=== PATIENT | male | born 1955 | race Caucasian/White ===

== ENCOUNTER 2019-04-18 19:11 | Observation (INO) | payer BC ==
[2019-04-18] MEDS ORDERED: MORPHINE SULFATE 5 MG/ML VIAL IVP ONE (19:29)
[2019-04-18] MEDS ORDERED: ONDANSETRON HCL IV 4 MG/2 ML VIAL IVP ONE (19:29)
[2019-04-18] MEDS ORDERED: 0.9 % SODIUM CHLORIDE 1000ML 1,000 ML IV SCH (19:30)
--- NOTE | 2019-04-18 19:35 | Emergency Department Record ---
History of Present Illness - General Chief Complaint: Numbness Stated Complaint: SHARP PAIN R GROIN/ LEG NUMB Time Seen by Provider: 04/18/19 19:23 Source: Patient Mode of Arrival: Ambulatory Limitations: No limitations - History of Present Illness Initial Comments: 63 yo male presents to ED for evaluation of right groin/right lower quadrant abdominal pain for the past 4 days, worsened this evening. Patient reports that his pain symptoms have been intermittent, reports constipation without nausea, vomiting, fevers, or chills. Patient denies urinary symptoms. Patient deneis history of kidney stones, reports history of PA with stent x 2 and IDDM. Onset/Timin -: Days(s) Location: Right leg History of same: No Place: Home Associated Symptoms: Denies other symptoms Treatments Prior to Arrival: None - Leslie Coma Scale Eye Response: (4) Open spontaneously Motor Response: (6) Obeys commands Verbal Response: (5) Oriented [place] Total: 15 - Related Data Home Medications: Home Medications Medication Instructions Recorded Confirmed Last Taken Insulin Glargine/Lixisenatide 34 units SQ DAILY 04/18/19 04/18/19 04/17/19 [Soliqua 100 Unit-33 Mcg/ml Pen] Allergies/Adverse Reactions: Allergies Allergy/AdvReac Type Severity Reaction Status Date / Time No Known Drug Allergies Allergy Verified 12/07/13 11:41 Travel Screening - Travel/Exposure Within Last 30 Days Have you traveled within the last 30 days?: No - Travel/Exposure Within Last Year Have you traveled outside the [place] in the last year?: No - Additonal Travel Details Have you been exposed to anyone with a communicable illness?: No - Travel Symptoms Symptom Screening: None Review of Systems Constitutional: Denies: Chills, Fever, Malaise, Night sweats Eyes: Denies: Eye discharge, Eye pain ENT: Denies: Congestion, Ear pain, Epistaxis Respiratory: Denies: Cough, Dyspnea Cardiovascular: Denies: Chest pain, Dyspnea on exertion Endocrine: Denies: Fatigue, Heat or cold intolerance Gastrointestinal: Reports: Abdominal pain, Constipation. Denies: Nausea, Vomiting Genitourinary: Denies: Incontinence, Retention, Testicular pain, Testicular mass Musculoskeletal: Denies: Arthralgia, Back pain Skin: Denies: Bruising, Change in color Neurological: Denies: Abnormal gait, Confusion, Headache, Seizure Psychiatric: Denies: Anxiety Hematological/Lymphatic: Denies: Anemia, Blood Clots Past Medical History - SOCIAL HISTORY Smoking Status: Current every day smoker Alcohol Use: None Drug Use: None - RESPIRATORY Hx Respiratory Disorders: No - CARDIOVASCULAR Hx Cardio Disorders: Yes Hx Cardiac Cath: Yes Hx Chest Pain: Yes Hx CHF: Yes Hx Heart Attack: Yes Hx Hypertension: Yes - NEURO Hx Neuro Disorders: No - GI Hx GI Disorders: No - Hx Genitourinary Disorders: No - ENDOCRINE Hx Endocrine Disorders: Yes Hx Diabetes: Yes (type 2) - MUSCULOSKELETAL Hx Musculoskeletal Disorders: No - PSYCH Hx Psych Problems: Yes Hx Anxiety: Yes Hx Depression: Yes - HEMATOLOGY/ONCOLOGY Hx Hematology/Oncology Disorders: No Family Medical History Any Significant Family History?: Yes Hx Diabetes: Mother Physical Exam - General General Appearance: Alert, Oriented x3, Cooperative, Moderate distress (appears uncomfortable on examination) Limitations: No limitations - Head Head exam: Atraumatic, Normocephalic, Normal inspection Head exam detail: negative: Abrasion, Contusion, Johnson's sign, General tender ness, Hematoma, Laceration - Eye Eye exam: Normal appearance. negative: Conjunctival injection, Periorbital swelling, Periorbital tenderness, Scleral icterus - ENT Ear exam: negative: Auricular hematoma, Auricular trauma Nasal Exam: negative: Active bleeding, Discharge, Dried blood, Foreign body Mouth exam: negative: Drooling, Laceration, Muffled voice, Tongue elevation - Neck Neck exam: Normal inspection. negative: Meningismus, Tenderness - Respiratory Respiratory exam: Normal lung sounds bilaterally. negative: Respiratory distress, Rhonchi, Stridor, Wheezes - Cardiovascular Cardiovascular Exam: Regular rate, Normal rhythm, Normal heart sounds Peripheral Pulses: 3+: Dorsalis Pedis (R) (Normal DPP right foot) - GI/Abdominal GI/Abdominal exam: Soft, Tenderness (TTP right inguinal region, no mass palpated, no bruising, no evidence for hernia or injury on examination. No lymphadenopathy is present on examination.). negative: Rebound, Rigid - Rectal Rectal exam: Deferred - exam: Deferred - Extremities Extremities exam: Normal inspection. negative: Pedal edema, Tenderness - Back Back exam: Denies: CVA tenderness (R), CVA tenderness (L) - Neurological Neurological exam: Alert, Normal gait, Oriented X3 - Psychiatric Psychiatric exam: Normal affect, Normal mood - Skin Skin exam: Normal color. negative: Abrasion Type of lesion: negative: abrasion Course Vital Signs 04/18/19 19:20 Temperature 97.7 F Pulse Rate [ 87 Right] Respiratory 18 Rate Blood Pressure 148/94 [Left Arm] Pulse Ox 100 - Reevaluation(s) Reevaluation #1: 04/18/19 20:54 Laboratory studies were reviewed and appear grossly unremarkable for an acute process. Patient is back from CT imaging, reports little improvement with Morphine. Dilaudid 1.0 mg ordered for continued pain symptoms. Reevaluation #2: 04/18/19 21:05 CT Abdomen and Pelvis: No ureteral tract calculi are evident on examination Diverticulosis of the distal colon without diverticulitis Reevaluation #3: 04/18/19 21:17 Patient was reassessed, reports pain symptoms at still 3-4/10. Patient was re-evaluated, continues to have strong DPP on re-examination. No clinical evidence for vascular occlusion on examination. ? Nerve impingement on examination. Will admit for further evaluation and US in the AM. Reevaluation #4: 04/19/19 06:34 Case was discussed with Dr. Goldberg, will accept admission at this time. Medical Decision Making - Lab Data Result diagrams: 04/18/19 19:40 04/18/19 19:40 Disposition Disposition: Admit Clinical Impression: Right inguinal pain Disposition: Still a Patient at [facility] Decision to Admit: Admit from ER Decision to Admit Date: 04/18/19 Decision to Admit Time: 21:21 Condition: (2) Stable Time of Disposition: 21:21 Quality - Quality Measures Quality Measures: N/A - Blood Pressure Screening Does Patient Have Any of the Following: Active Dx of HTN Blood Pressure Classification: Pre-Hypertensive BP Reading Systolic Measurement: 130 Diastolic Measurement: 79 Screening for High Blood Pressure: Patient Exclusion, Hx of HTN [G9744]
[2019-04-18 19:43] LABS: BASO % 0.3 % (0-6); EOS % 4.3 % (0-6); GRAN % 63.6 % (47-80); HEMATOCRIT 44.6 % (42.0-52.0); HEMOGLOBIN 14.8 gm/dl (14.0-18.0); LYMPH % 20.4 % (16-45); MEAN CELL VOLUME 89.6 fl (81-97); MEAN CORPUSCULAR HEMOGLOBIN 29.7 pg (27-33); MEAN CORPUSCULAR HGB CONC 33.2 g/dl (32-36); MEAN PLATELET VOLUME 9.4 fl (7.4-10.4); MONO % 11.4 % (0-9); PLATELET COUNT 310 K/uL (130-400); RED BLOOD COUNT 4.98 M/uL (4.40-5.70); RED CELL DISTRIBUTION WIDTH 15.1 % (11.5-14.5); WHITE BLOOD COUNT W/O DIFF 11.6 K/uL (4.2-12.2)
[2019-04-18 19:55] LABS: BLOOD UREA NITROGEN 19 mg/dL (8-23); CREATININE 0.7 mg/dL (0.7-1.2); EST GLOMERULAR FILTRATION RATE > 60 mL/min
[2019-04-18 19:56] LABS: LIPASE 19 U/L (13-60); TOTAL PROTEIN 7.7 g/dL (6.6-8.7)
[2019-04-18 19:58] LABS: GLUCOSE,RANDOM 108 mg/dL (74-109)
[2019-04-18 20:01] LABS: ALBUMIN 3.9 g/dL (4.0-5.0); ALKALINE PHOSPHATASE 84 U/L (40-129); ALT/SGPT 10 U/L (<41); AST/SGOT 13 U/L (10.0-50.0)
[2019-04-18 20:19] LABS: URINE APPEARANCE CLEAR; URINE BILIRUBIN NEGATIVE (NEGATIVE); URINE BLOOD TRACE-I (NEGATIVE); URINE COLOR YELLOW; URINE KETONE NEGATIVE (NEGATIVE); URINE LEUKOCYTE ESTERASE NEGATIVE (NEGATIVE); URINE NITRITE NEGATIVE (NEGATIVE)
[2019-04-18 20:28] LABS: URINE RBC 0 - 2 (NONE SEEN); URINE WBC 0 - 2 (0-2/hpf)
[2019-04-18] MEDS ORDERED: HYDROMORPHONE HCL 2 MG/ML VIAL IVP ONE (20:55)
[2019-04-18] MEDS ORDERED: METHYLPREDNISOLONE PF 125MG/VIAL IVP ONE (21:22)
[2019-04-18] MEDS ORDERED: HYDROMORPHONE HCL 2 MG/ML VIAL IVP PRN (21:41)
[2019-04-18] MEDS ORDERED: 0.9 % SODIUM CHLORIDE 1000ML 1,000 ML IV ONE (21:41)
[2019-04-18] MEDS ORDERED: ONDANSETRON HCL IV 4 MG/2 ML VIAL IVP PRN (21:41)
[2019-04-18] MEDS ORDERED: METFORMIN ER HCL 500 MG TAB.ER.24H PO SCH (22:00)
[2019-04-19] MEDS ORDERED: NICOTINE 21 MG/24 HOUR PATCH TD PRN (06:33)
[2019-04-19 06:57] LABS: ABSOLUTE NEUTROPHIL COUNT 6.23; BASO % 0.3 % (0-6); EOS % 5.3 % (0-6); GRAN % 53.3 % (47-80); HEMATOCRIT 41.4 % (42.0-52.0); HEMOGLOBIN 13.6 gm/dl (14.0-18.0); LYMPH % 30.9 % (16-45); MEAN CELL VOLUME 90.6 fl (81-97); MEAN CORPUSCULAR HGB CONC 32.9 g/dl (32-36); MEAN PLATELET VOLUME 9.2 fl (7.4-10.4); MONO % 10.2 % (0-9); PLATELET COUNT 283 K/uL (130-400); RED BLOOD COUNT 4.57 M/uL (4.40-5.70); RED CELL DISTRIBUTION WIDTH 14.9 % (11.5-14.5); WHITE BLOOD COUNT W/O DIFF 11.7 K/uL (4.2-12.2)
[2019-04-19 07:00] LABS: MEAN CORPUSCULAR HEMOGLOBIN 29.7 pg (27-33)
[2019-04-19 07:14] LABS: BLOOD UREA NITROGEN 15 mg/dL (8-23); CREATININE 0.7 mg/dL (0.7-1.2); EST GLOMERULAR FILTRATION RATE > 60 mL/min; GLUCOSE,RANDOM 81 mg/dL (74-109)
--- NOTE | 2019-04-19 09:34 | Discharge Note ---
VTE H&P Assessment - Risk for VTE Risk for VTE: No Risk Level: Very Low Risk Assessment Date: 04/19/19 Risk Assessment Time: 09:58 VTE Orders Placed or Will Be Placed: No VTE Reason for No Prophylaxis: Not Indicated Discharge Medications - Discharge Medications Prescriptions: Hydrocodone/Acetaminophen [Orange 5-325 Tablet] 1 each PO Q6HR PRN #10 tablet PRN Reason: Pain - Severe (8-10) Sulfamethoxazole/Trimethoprim [Bactrim Ds Tablet] 1 each PO BID #20 tablet Home Medications: Ambulatory Orders Aspirin 325 mg PO DAILY 12/07/13 [Last Taken 12/07/13] Metoprolol Succinate [Toprol Xl] 50 mg PO DAILY 12/07/13 [Last Taken 04/17/19] Nitroglycerin 1 ea TD Q5MIN PRN 12/07/13 [Last Taken 12/07/13] Rosuvastatin Calcium [Crestor] 10 mg PO DAILY 12/07/13 [Last Taken 04/17/19] Insulin Glargine/Lixisenatide [Soliqua 100 Unit-33 Mcg/ml Pen] 34 units SQ DAILY 04/18/19 [Last Taken 04/17/19] Hydrocodone/Acetaminophen [Orange 5-325 Tablet] 1 each PO Q6HR PRN #10 tablet 04/19/19 [Last Taken Unknown] Metformin HCl 500 mg PO BID 04/19/19 [Last Taken Unknown] Sulfamethoxazole/Trimethoprim [Bactrim Ds Tablet] 1 each PO BID #20 tablet 04/19/19 [Last Taken Unknown] Discharge Note - Date Date of Discharge Note: 04/19/19 Condition: (2) Stable Additional Instructions: warm soaks to buttock use tylenol or motrin for moderate pain use norco for severe pain follow up with Dr Joshi in one week Referrals: EVELYNE JOSHI [Primary Care Provider] - Forms: Patient Portal Access
[2019-04-19] MEDS ORDERED: METOPROLOL SUCC 50 MG TABLET PO SCH (10:00)
[2019-04-19] MEDS ORDERED: PRASUGREL HCL 10 MG PO SCH (10:00)
[2019-04-19] MEDS ORDERED: Soliqua 100 Unit-33 Mcg/Ml Pen SC SCH (10:00)
[2019-04-19] MEDS ORDERED: ATORVASTATIN 20 MG TABLET PO SCH (10:00)
[2019-04-19] MEDS ORDERED: ASPIRIN 325 MG TABLET PO SCH (10:00)
--- NOTE | 2019-04-19 13:04 | CT SCAN REPORT ---
EXAM: CT OF THE ABDOMEN AND PELVIS WITHOUT CONTRAST HISTORY: RIGHT GROIN PAIN. TECHNIQUE: Without administration of intravenous contrast contiguous axial sections were obtained through the abdomen and pelvis. Coronal and sagittal reformats. Comparison: 05/11/16. FINDINGS: The subpleural nodule of the right middle lobe appears unchanged since the prior examination. Curvilinear opacities suggesting areas of lung scarring are subsegmental atelectasis. No free air evidence within the abdomen or pelvis. Noncontrast technique limits evaluation of the solid organs. The gallbladder is present. No pericholecystic fluid. Bilateral renal cysts continue. No renal, ureteral or bladder stone evident. No hydronephrosis. Perinephric fat stranding appears unchanged. The visualized portions of the solid organs otherwise grossly unremarkable as seen. There is atherosclerosis. No abdominal aortic aneurysm. Evaluation of the vasculature is otherwise limited. The GI tract is nondilated. The appendix is normal. There are a few scattered diverticula of the distal colon without clear surrounding inflammatory change. No mesenteric adenopathy. The abdominal wall appears grossly intact. There are degenerative changes of the spine, sacroiliac joints, and hips. IMPRESSION: 1. NO CT EVIDENCE FOR RENAL, URETERAL, OR BLADDER STONE. NO HYDRONEPHROSIS. 2. DISTAL COLON DIVERTICULOSIS WITHOUT EVIDENCE FOR DIVERTICULITIS AT THIS TIME. 3. NOT MENTIONED IN THE ABOVE REPORT IS MILD BILATERAL INGUINAL ADENOPATHY WHICH APPEARS GROSSLY UNCHANGED. 4. THE ER PHYSICIAN WAS NOTIFIED BY VOICE CLIP. JOB NUMBER: [id number] MTDD
--- NOTE | 2019-04-19 14:10 | History and Physical Report ---
CHIEF COMPLAINT: Right groin pain. HISTORY OF PRESENT ILLNESS: This 63-year-old male presented to the emergency department with right groin pain which started 3-4 days prior. The pain is on and off and become unbearable around 5:30 p.m. with numbness in the right hip, top of the right thigh. Denies recent illness or injury. the patient states that he had a BM yesterday which was painful. Denies urinary symptoms. He has a history of hidradenitis. He was evaluated in the emergency department by Dr. Henry who admitted him to the hospital for further evaluation. He was concerned it may be a circulation problem; however, the pulses in his legs are good. He was given some pain medication. He is feeling much better today. The pain is way improved. The patient reveals to me on my examination that he has had abscesses in the scrotum and the buttocks, especially on the right side. The right buttock is currently draining in 2 spots purulent material from hidradenitis. He takes prophylactic Bactrim to try keep them under control. He is using single-strength Bactrim b.i.d. There are no abscesses that need to be drained at this time. They are spontaneously draining. However, his lymph nodes are inflamed and that is what is causing his right groin pain. His numbness is gone at this time. PAST MEDICAL HISTORY: Coronary artery disease with stents x2 two to three years ago, hypertension, [place] in the past, anxiety and depression. He has diabetes mellitus type 2. PAST SURGICAL HISTORY: Bilateral knee surgery and stents in his heart. MEDICATIONS: On admission: 1. Crestor 10 mg daily. 2. Effient 10 mg daily. 3. Toprol-XL 50 mg daily. 4. Metformin 500 mg b.i.d. 5. Insulin combination product called Soliqua 100/33 daily. It is a combination of Lantus and lixisenatide, 34 units a day. 6. Aspirin 325 daily. 7. Nitro-Dur p.r.n. every 5 minutes apart if necessary for chest pain. ALLERGIES: No known allergies. FAMILY/PSYCHOSOCIAL HISTORY: Mother has diabetes. Smoker. He currently smokes about a pack a day. No alcohol or drug use. REVIEW OF SYSTEMS: HEENT: No upper respiratory infection symptoms, cough, cold, or congestion. Cardiovascular: No chest pain, palpitations, or arrhythmia. Respiratory: No shortness of breath or hemoptysis. He does smoke cigarettes. Gastrointestinal: No nausea, vomiting, diarrhea, black stools, or bloody stools. Eating breakfast nicely today. Genitourinary: No dysuria, hematuria, frequency, or burning on urination. Musculoskeletal: No joint or bone abnormalities. Neurological: No CVA, paralysis, or paresthesias. Endocrine: He has diabetes mellitus type 2, no thyroid disease. Integument: No rash, ulcers, change in moles, or yellow skin. However, in the scrotum he has abscesses and also in the buttocks, which he has had lots of scarring from the abscesses that have drained in the past plus more that are currently draining right now. He had a fairly large one drain 2 weeks ago. He has some that are currently draining in the right buttock. PHYSICAL EXAMINATION: VITALS: Height 6 feet 4 inches, weight 222 pounds. Temperature 98.6, pulse 79, blood pressure 136/71, respiratory rate 16, pulse ox 94% on room air. HEENT: Pupils are equal, round, and reactive to light and accommodation. Extraocular muscles are intact. Throat is clear. Nose is clear. Tympanic membranes are carmona. NECK: Supple. No jugular venous distention. No hepatojugular reflux. No carotid bruits. Thyroid is smooth. CARDIOVASCULAR: Regular rate and rhythm without murmurs, clicks, rubs, or gallops. RESPIRATORY: Clear to auscultation and percussion. ABDOMEN: Soft, nontender. No hepatosplenomegaly, no masses, no tenderness. Bowel sounds are active. EXTREMITIES: No pitting edema. No cyanosis, no clubbing. Full range of motion. Peripheral pulses are good bilaterally. BREASTS: Normal male breasts. RECTAL: Deferred but he does have abscesses that are on the right buttock and on the left scrotum which are currently draining, and he is on Bactrim single strength b.i.d. He uses it on and off when it flares up. NEUROLOGIC: Cranial nerves II-XII intact. No gross defects. Sensation normal, strength normal. Deep tendon reflexes equal bilaterally with Babinski negative. MENTAL STATUS: Alert and oriented x3. IMPRESSION: 1. Right groin pain. 2. Abscess of the right buttock, draining. We will increase his Bactrim to double strength b.i.d. 3. Scrotal abscess on the left side already draining. Way smaller than it was 2 weeks ago, according to the patient. He has some sensitivity when palpating the lymph nodes in the right groin. PLAN: Bactrim double strength 1 b.i.d. At this point, there is no need to do an arterial Doppler and he has good circulation in his legs. We will plan to discharge with an increased dose of medication. Follow up with Dr. Riggins, his primary doctor, in 1 week. PRATIK
--- NOTE | 2019-04-19 14:10 | Discharge Summary ---
DISCHARGE DIAGNOSES: 1. Right groin pain. 2. Abscess in the right buttock, draining spontaneously. 3. Abscess in the left scrotum, draining spontaneously. 4. Diabetes mellitus type 2. 5. Coronary artery disease. 6. Hypercholesterolemia. ATTENDING PHYSICIAN: Apollo Goldberg DO REASON FOR HOSPITALIZATION: Right groin pain which started 4 days ago. Admitted by Dr. Henry for further evaluation. Possible arterial Doppler. The patient had numbness and right groin pain which is completely better at this time at my evaluation. SIGNIFICANT FINDINGS: CT scan essentially negative with some lymphadenopathy on both sides, unchanged according to the radiologist. That is an abdomen/pelvic CT scan. He also had laboratory work done. WBC 11,700, hemoglobin 13.6. His chemistries are normal. BUN 15, creatinine 0.7, potassium 4.2. His urine negative for urinary tract infection. Slightly dehydrated. THERAPY PROVIDED: IV fluids and pain control. HOSPITAL COURSE: The patient required a dose of Dilaudid at 1:30 a.m., 0.5 mg, and he has been pain free since then. CONDITION ON DISCHARGE: Much improved. DISCHARGE INSTRUCTIONS: Follow up with Dr. Riggins in 1 week. Bactrim double strength b.i.d. for 10 days. Warm soaks. MTDD
== END 2019-04-19 10:44 | disposition home or self-care (01) ==
LOC: ER 19:11 → MEDSURG 21:28
PROVIDERS: ADMIT Emergency Medicine; ATTEND Emergency Medicine
DX: R10.31 Right lower quadrant pain (principal); L02.31 Cutaneous abscess of buttock; N49.2 Inflammatory disorders of scrotum; K59.00 Constipation, unspecified; I50.9 Heart failure, unspecified; E11.9 Type 2 diabetes mellitus without complications; I25.2 Old myocardial infarction; Z79.4 Long term (current) use of insulin; F17.210 Nicotine dependence, cigarettes, uncomplicated; Z98.61 Coronary angioplasty status; Z95.5 Presence of coronary angioplasty implant and graft; Z87.442 Personal history of urinary calculi
CPT/HCPCS: 74176; 80048; 80053; 81001; 83690; 85025; 85027; 96374; 96375; 99220; 99285; J2405; J7030